=== PATIENT | male | born 1990 | race African-American/Black ===

== ENCOUNTER 2022-02-20 19:57 | Emergency (ER) | payer SELFPAY ==
[2022-02-20] VITALS (7 sets, daily range): BP systolic 69–147; BP diastolic 42–100
[~2022-02-20] VITALS: Ht 180.3 cm; Wt 127.0 kg
[2022-02-20] MEDS ORDERED: PREDNISONE50 MG PO (21:22)
[2022-02-20] MEDS ORDERED: PERCOCET 5/325M1 TAB PO (21:22)
[2022-02-20] MEDS ORDERED: FLEXERIL5 M1 PO (21:22)
== END 2022-02-20 22:15 | disposition home or self-care (01) | DRG 605 ==
LOC: ED 19:57
DX: S20.221A Contusion of right back wall of thorax, initial encounter (principal); S20.211A Contusion of right front wall of thorax, initial encounter; W20.8XXA Other cause of strike by thrown, projected or falling object, initial encounter; Y93.89 Activity, other specified; Y92.007 Garden or yard of unspecified non-institutional (private) residence as the place of occurrence of the external cause

== ENCOUNTER 2022-02-21 18:07 | Emergency (ER) | payer SELFPAY ==
[2022-02-21] VITALS (11 sets, daily range): BP systolic 154–199; BP diastolic 99–158
[~2022-02-21] VITALS: Ht 180.3 cm; Wt 110.0 kg
[~2022-02-21 18:07] MED LIST: FLEXERIL5 M1 PO; PERCOCET 5/325M1 TAB PO; PREDNISONE50 MG PO
== END 2022-02-21 21:00 | disposition left against medical advice (07) | DRG 951 ==
LOC: ED 18:07
DX: Z91.19 Patient's noncompliance with other medical treatment and regimen (principal)